=== PATIENT | male | born 1965 | race Caucasian/White ===

== ENCOUNTER 2020-10-15 16:16 | Outpatient (CLI) | payer BC, SELFPAY | END 2020-10-15 16:17 | disposition home or self-care (01) | DX: Z23 Encounter for immunization (principal) | CPT/HCPCS: 0001A; 91300 ==

== ENCOUNTER 2020-11-05 16:12 | Outpatient (CLI) | payer BC, SELFPAY | END 2020-11-05 16:13 | disposition home or self-care (01) | LOC: ANHCOVIDVC 16:13 | DX: Z23 Encounter for immunization (principal) | CPT/HCPCS: 0002A; 91300 ==

== ENCOUNTER 2023-10-23 15:28 | Outpatient (CLI) | payer BC, SELFPAY ==
--- NOTE | ~2023-10-23 | XR_ITS ---
XR knee LT 3V 10/23/2023 15:49 Indication: Left knee pain Procedure: 3 views left knee Comparison: No prior studies for comparison. Findings: Mild osteoarthritis. No fracture or traumatic malalignment. No joint effusion. No foreign b odies. Impression: 1: Mild osteoarthritis of the left knee. Reviewed, dictated and finalized at location B. Impression: 1: Mild osteoarthritis of the left knee.
== END 2023-10-23 15:29 ==
PROVIDERS: PCP Physician Assistant; Visit Provider Physician Assistant
DX: M17.12 Unilateral primary osteoarthritis, left knee (principal)
CPT/HCPCS: 73562

== ENCOUNTER 2024-03-08 11:28 | Emergency (ER) | payer BC, SELFPAY ==
--- NOTE | ~2024-03-08 | XR_ITS ---
EXAMINATION: XR shoulder RT min 2V DATE: 03/08/2024 12:16 INDICATION: Anterolateral right shoulder pain TECHNIQUE: AP internally and externally rotated, AP oblique externally rotated and transscapular Y vi ews of the right shoulder were obtained. COMPARISON: None FINDINGS: Normal alignment. No fracture. Glenohumeral joint is normal. Moderate acromioclavicular osteoarthrit is with moderate-sized inferiorly directed osteophytes. Small globular region of dystrophic calcifica tion consistent with calcific tendinitis. Soft tissues are otherwise unremarkable. IMPRESSION: 1. Moderate right acromioclavicular osteoarthritis. 2. Right rotator cuff calcific tendinitis. Reviewed, dictated and finalized at location A.
[2024-03-08 11:31] VITALS: BP 164/87; PULSE 62; RESP 20; TEMP 36.6; O2SAT 96
--- NOTE | 2024-03-08 12:36 | ED.UPPEXIN ---
HPI - Extremity Injury (Upper) General Chief Complaint: Extremity Injury, Upper Stated Complaint: r shoulder pain Time Seen by Provider: 03/08/24 11:33 History of Present Illness HPI narrative: 58-year-old male presents to the emergency department for right shoulder pain for 4 days. Patient states 5 days ago he was lifting 100 lb part at his work and the next morning he woke up with right shoulder pain. States The pain is progressively worsened throughout the week. States he has been taking Tylenol without improvement but did take aspirin with improvement. He does not have an orthopedist. Related Data Home Medications Medication Instructions Recorded Confirmed [id number]-[id number]-[id number] acid 400 tablet PO 06/14/21 10/09/23 mcg-vit K 20 mcg-lycop 300 mcg tablet (Men's Multivitamin) Allergies Allergy/AdvReac Type Severity Reaction Status Date / Time No Known Allergies Allergy Verified 03/08/24 11:36 Review of Systems Review of Systems: All systems reviewed & are unremarkable except as noted in HPI and below PMFSH Past Medical History Medical History Healthy adult Family History Family History Father Hypertension Social History Social History Smoking status: Never smoker Alcohol intake: current Alcohol use details: 1-2 beers/year Substance use: never Substance use type: does not use Exam Narrative: GENERAL: Well-appearing, well-nourished, and in no acute distress. HEAD: Normocephalic, atraumatic. ENT: Nares clear, no rhinorrhea or epistaxis. Mucous membranes moist. NECK: Supple. CHEST: Clear to auscultation. No respiratory distress. HEART: Regular rate and rhythm. No murmur heard. Normal peripheral pulses. EXTREMITIES: RUE: Point tenderness to the acromioclavicular joint on palpation. No tenderness to the remainder acromion or clavicle, no tenderness to the glenohumeral joint. Patient has limited active abduction and anterior flexion. Full active internal rotation. Full passive range of motion throughout all collier. Sensation intact throughout. Radial, median ulnar nerves are intact. Radial pulse 2 +. Unable to perform empty can test secondary to pain. Negative lift-off test. SKIN: Warm, dry, no rash. NEURO: No focal deficits. Alert and oriented x3 Course Vital Signs Vital signs: Vital Signs Temperature 97.9 F 03/08/24 11:31 Pulse Rate 62 03/08/24 11:31 Respiratory Rate 20 03/08/24 11:31 Blood Pressure 164/87 H 03/08/24 11:31 Pulse Oximetry 96 03/08/24 11:31 Oxygen Delivery Room Air 03/08/24 11:31 Temperature 97.9 F 03/08/24 11:31 Pulse Rate 62 03/08/24 11:31 Respiratory Rate 20 03/08/24 11:31 Blood Pressure 164/87 H 03/08/24 11:31 Pulse Oximetry 96 03/08/24 11:31 Oxygen Delivery Room Air 03/08/24 11:31 MDM - Extremity Injury (Upper) MDM Narrative Medical decision making narrative: 58-year-old male presents to the emergency department for right shoulder pain for 4 days after leaving a 100 lb part at work. 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 Triage vital significant for blood pressure 168/87, otherwise unremarkable. Exam is significant for point tenderness to the AC joint and limited active range of motion secondary to pain. X-ray shows moderate right acromioclavicular osteoarthritis and right rotator cuff calcific tendinitis. This is consistent patient's exam. Imaging and exam discussed with the patient. I offered a sling, however he politely declined states he has 1 at home he will use if needed. Will start him on naproxen and provide orthopedic referral. Strict ED return precautions discussed. He is agreeable to plan verbalized understanding. Discharged in stable condition. Disc
[2024-03-08] MEDS: LIDOCAINE 5% PATCH 1 PATCH TRANSDERM (12:48)
[2024-03-08] MEDS: NAPROXEN 500 MG TABLET PO (12:48)
== END 2024-03-08 12:54 | disposition home or self-care (01) ==
PROVIDERS: Emergency Provider Physician Assistant; PCP Family Medicine
DX: M77.8 Other enthesopathies, not elsewhere classified (principal); M19.011 Primary osteoarthritis, right shoulder
CPT/HCPCS: 73030; 99283; A9270

== ENCOUNTER 2025-01-16 15:26 | Outpatient (CLI) | payer BC, SELFPAY ==
--- NOTE | ~2025-01-16 | XR_ITS ---
CHEST RADIOGRAPH, PA AND LATERAL CLINICAL HISTORY: Z12.5 - Encounter for screening for malignant neoplasm of... . COMPARISON: None available TECHNIQUE: PA and lateral views of the chest. FINDINGS The cardiomediastinal silhouette is unremarkable. The lungs are clear. IMPRESSION: No focal infiltrate or effusion. Reviewed, dictated and finalized at location A.
== END 2025-01-16 15:27 | disposition home or self-care (01) ==
LOC: MICIMG 15:27
PROVIDERS: PCP Family Medicine; Visit Provider Student in an Organized Health Care Education/Training Program
DX: R06.2 Wheezing (principal); Z12.5 Encounter for screening for malignant neoplasm of prostate; Z13.220 Encounter for screening for lipoid disorders
CPT/HCPCS: 71046

== ENCOUNTER 2025-02-24 08:34 | Outpatient (CLI) | payer BC, SELFPAY ==
--- NOTE | 2025-02-24 08:49 | ECHO_ITS ---
Patient Info Name: Kody Gutierrez Age: 59 years : 1965 Gender: Male Ht: 72 in Wt: 245 lbs BSA: 2.41 m2 HR: 65 bpm BP: 158 / 93 mmHg Technical Quality: Fair Exam Date: 02/24/2025 8:59 AM Patient Status: O Admit Date: 02/24/2025 Exam Type: CA echo doppler color flow Complete two-dimensional, color flow and Doppler transthoracic echocardiogram is performed. Manager Acquisition: Demetrice Avalos Attending Provider: Elvie Booth Summary 1. Complete two-dimensional, color flow and Doppler transthoracic echocardiogram is performed. 2. Left ventricular chamber dimension is normal. 3. Left ventricular systolic function is normal, estimated at 60-65. 4. The left ventricular diastolic function is grade I diastolic dysfunction. 5. E/e' 8 is minimally elevated. 6. Left atrial chamber dimension is mildly enlarged. 7. There is trace mitral valve regurgitation. 8. There is trace tricuspid valve regurgitation. 9. No pulmonary hypertension, estimated pulmonary arterial systolic pressure is 33 mmHg. Left Ventricle E/e' 8 is minimally elevated. Left ventricular chamber dimension is normal. Left ventricular systolic function is normal, estimated at 60-65. The left ventricular diastolic function is grade I diastolic dysfunction. Right Ventricle Right ventricular chamber dimension is normal. Right ventricular systolic function is normal. Left Atria Left atrial chamber dimension is mildly enlarged. Right Atria Right atrial chamber dimension is normal. Aortic Valve The aortic valve is trileaflet. There is no aortic valve stenosis. There is no aortic valve regurgitation. Pulmonic Valve There is no pulmonic regurgitation. Mitral Valve There is no mitral valve stenosis. There is trace mitral valve regurgitation. Tricuspid Valve There is trace tricuspid valve regurgitation. No pulmonary hypertension, estimated pulmonary arterial systolic pressure is 33 mmHg. Pericardium/Pleural There is no pericardial effusion. Inferior Vena Cava Normal inferior vena cava with >50% collapse upon inspiration consistent with normal right atrial pressure, 5 mmHg. Aorta The aortic root size at the sinus of Valsalva is normal. Left Ventricular Outflow Tract Name Value Normal LVOT 2D LVOT Diameter 2.0 cm LVOT Doppler LVOT Peak Velocity 127 cm/s LVOT Peak Gradient 6 mmHg LVOT Mean Gradient 3 mmHg LVOT VTI 29 cm LVOT VTI/AV VTI Ratio 0.8 LVOT Stroke Volume 93 ml LVOT CO 5.8 l/min LVOT CI 2.4 l/min/m2 Pulmonic Valve Name Value Normal RVOT Doppler RVOT Peak Velocity 93 cm/s RVOT Peak Gradient 3 mmHg PV Doppler PV Peak Velocity 132 cm/s PV Peak Gradient 7 mmHg Mitral Valve Name Value Normal MV Diastolic Function MV E Peak Velocity 91 cm/s MV A Peak Velocity 94 cm/s MV E/A 1.0 MV Decel Time (PW) 252 ms Tricuspid Valve Name Value Normal TV Regurgitation Doppler TR Peak Velocity 264 cm/s TR Peak Gradient 28 mmHg Estimated PAP/RSVP RA Pressure 5 mmHg <=5 PA Systolic Pressure 33 mmHg <36 RV Systolic Pressure 33 mmHg <36 Aorta Name Value Normal Ascending Aorta Ao Root Diameter (MM) 3.0 cm Ao Root Diam Index (MM) 1.3 cm/m2 Aortic Valve Name Value Normal AV Doppler AV Peak Velocity 162 cm/s AV Peak Gradient 10 mmHg AV Mean Gradient 6 mmHg AV VTI 36 cm AV Area (Cont Eq VTI) 2.6 cm2 >=3.0 AV Area (Cont Eq Sly) 2.5 cm2 AV DI (Sly) 0.79 AV Regurgitation 2D LVOT Area 3.2 cm2 Ventricles Name Value Normal LV Dimensions 2D/MM IVS Diastolic Thickness (2D) 0.9 cm 0.6-1.0 IVS Diastole Thickness (MM) 0.8 cm 0.6-1.0 LVID Diastole (2D) 4.9 cm 4.2-5.8 LVID Diastole (MM) 5.9 cm 4.2-5.8 LVIW Diastolic Thickness (2D) 0.9 cm 0.6-1.0 LVIW Diastolic Thickness (MM) 0.9 cm 0.6-1.0 LVID Systole (2D) 3.1 cm 2.5-4.0 LVID Systole (MM) 3.3 cm 2.5-4.0 LVOT Diameter 2.0 cm LV Mass (2D Cubed) 155.07 g 88.00-224.00 LV Mass Index (2D Cubed) 64 g/m2 49-115 Relative Wall Thickness (2D) 0.36 <=0.42 LV Mass (MM Cubed) 184.21 g 88.00-224.00 LV Mass Index (MM Cubed) 76 g/m2 49-115 Relative Wall Thickness (MM) 0.30 LV Fractional Shortening/Ejection Fraction 2D/MM LV Fractional Shortening (2D) 36 % 25-43 LV Fractional Shortening (MM) 43 % 25-43 LV EF (MM Teichholz) 74 % LV EF (2D Teichholz) 65 % LV Diastolic Volume (4C MOD) 100 ml LV EF (4C MOD) 68 % LV Diastolic Volume (2C MOD) 113 ml LV EF (2C MOD) 67 % LV Diastolic Volume (BP MOD) 106 ml 62-150 LV Diastolic Volume Index (BP MOD) 44 ml/m2 34-74 LV Systolic Volume (BP MOD) 36 ml 21-61 LV Systolic Volume Index (BP MOD) 15 ml/m2 11-31 LV EF (BP MOD) 66 % 52-72 LV Diastolic Length (4C) 8.1 cm LV Systolic Length (4C) 6.5 cm LV Stroke Volume (4C MOD) 69 ml Atria Name Value Normal LA Dimensions LA Dimension (MM) 4.1 cm 3.0-4.0 LA Volume (4C A-L) 56 ml LA Volume (BP A-L) 75 ml RA Dimensions RA Systolic Major [place] Length (4C) 4.9 cm 2.1-2.7 RA Area (4C) 14.3 cm2 <=18.0 Report Signatures
== END 2025-02-24 08:35 | disposition home or self-care (01) ==
PROVIDERS: PCP Family Medicine; Visit Provider Student in an Organized Health Care Education/Training Program
DX: R01.1 Cardiac murmur, unspecified (principal)
CPT/HCPCS: 93306